=== PATIENT | male | born 1995 | race Caucasian/White ===

== ENCOUNTER → 2018-08-05 11:13 | Outpatient (CLI) | payer MEDICAID, SELFPAY ==
[2018-08-05 11:41] LABS: Basophils # 0.1 K/mm3 (0-0.2); Basophils % 0.7 % (0.1-2.0); Eosinophils # 0.2 K/mm3 (0.0-0.4); Eosinophils % 2.6 % (0.1-12.0); Hematocrit 50.6 % (42.0-52.0); Hemoglobin 16.6 g/dL (14.1-18.0); Lymphocytes # 2.2 K/mm3 (0.7-4.5); Lymphocytes % 27.5 % (10-50); Mean Corpuscular HGB Conc 32.9 g/dL (31.8-35.4); Mean Corpuscular Hemoglobin 31.1 pg (27.0-31.2); Mean Corpuscular Volume 94.5 fl (80-94); Monocytes # 0.6 K/mm3 (0.1-1.0); Monocytes % 7.5 % (1.7-9.3); Neutrophils # 4.9 K/mm3 (1.8-7.8); Neutrophils % 61.8 % (37.0-80.0); Platelet Count 289 K/mm3 (142-424); Red Blood Count 5.35 M/mm3 (4.60-6.20); Red Cell Distribution Width 12.7 % (11.5-17.5); White Blood Count 7.9 K/mm3 (4.8-10.8)
[2018-08-05 14:01] LABS: Alanine Aminotransferase 29 U/L (12-78); Albumin Level 3.5 gm/dL (3.4-5.0); Albumin/Globulin Ratio 1.3 (1.1-1.8); Alkaline Phosphatase 76 U/L (46-116); Anion Gap 14.5 mEq/L (5-15); Aspartate Amino Transferase 21 U/L (15-37); Bilirubin,Total 0.7 mg/dL (0.2-1.0); Blood Urea Nitrogen 14 mg/dL (7-18); Calcium 8.9 mg/dL (8.5-10.1); Carbon Dioxide 26 mmol/L (21.0-32.0); Chloride 104 mmol/L (98-107); Cholesterol 158 mg/dL (140-200); Creatinine,Serum 0.82 mg/dL (0.70-1.30); Estimated Glomerular Filt Rate 117 ml/min (>60); Free T4 (Free Thyroxine) 0.84 ng/dl (0.76-1.46); GFR (African American) 142 ML/MIN (>60); Globulin 2.8 gm/dl (1.3-3.2); Glucose 97 mg/dL (74-106); HDL Cholesterol 40 mg/dL (27-67); LDL Cholesterol 96 mg/dL (0-130); Potassium 4.5 mmoL/L (3.5-5.1); Sodium 140 mmol/L (136-145); Thyroid Stimulating Hormone 1.51 uIU/ml (0.358-3.740); Total Protein,Serum 6.3 gm/dL (6.4-8.2); Triglycerides 108 mg/dL (30-200); VLDL Cholesterol 22 mg/dL (0-40)
[2018-08-06 20:49] LABS: Vitamin D 25 Hydroxy 15.9 ng/mL (30.0-100.0)
== END ==
PROVIDERS: Visit Provider Nurse Practitioner Family
DX: I10 Essential (primary) hypertension (principal); E55.9 Vitamin D deficiency, unspecified
CPT/HCPCS: 36415; 80053; 80061; 82652; 84439; 84443; 85025

== ENCOUNTER → 2019-04-17 16:58 | Outpatient (CLI) | payer MEDICAID, SELFPAY ==
--- NOTE | 2019-04-17 17:18 | XR_ITS ---
PROCEDURE: XR KNEE LT 3V CLINICAL INDICATION: pain COMPARISON: No exams were available for comparison FINDINGS: No fracture or dislocation. No lytic or blastic change. There is normal mineralization. The joint spaces are well-preserved. No significant degenerative/arthritic changes. No erosive changes evident. Other findings:Lead gonadal shielding was utilized for the exam. IMPRESSION: No acute findings. Dictated by: Chai Coppola 04/18/2019 09:46 Electronically signed by Chai Coppola in [place] 04/18/2019 09:46
--- NOTE | 2019-04-17 17:18 | XR_ITS ---
PROCEDURE: XR LUMBAR SPINE 2-3V CLINICAL INDICATION: pain COMPARISON: Pain for months FINDINGS: There is no acute fracture dislocation or other focal bony lesion. Disc space heights are preserved. IMPRESSION: No acute findings. Dictated by: Chai Coppola 04/18/2019 09:48 Electronically signed by Chai Coppola in [place] 04/18/2019 09:48
--- NOTE | 2019-04-17 17:18 | XR_ITS ---
PROCEDURE: XR KNEE RT 3V CLINICAL INDICATION: pain COMPARISON: No exams were available for comparison FINDINGS: No fracture or dislocation. No lytic or blastic change. There is normal mineralization. The joint spaces are well-preserved. No significant degenerative/arthritic changes. No erosive changes evident. Other findings:Lead gonadal shielding was utilized for the exam. IMPRESSION: No acute findings. Dictated by: Chai Coppola 04/18/2019 09:45 Electronically signed by Chai Coppola in [place] 04/18/2019 09:45
[2019-04-17 18:09] LABS: C-Reactive Protein 2.2 mg/dL (0.0-0.9)
[2019-04-17 19:20] LABS: Erythrocyte Sedimentation Rate 7 mm/hr (0-15)
[2019-04-17 21:35] LABS: Alanine Aminotransferase 55 U/L (21-72); Albumin Level 3.8 g/dL (3.4-5.0); Albumin/Globulin Ratio 1.1 (1.1-1.8); Alkaline Phosphatase 90 U/L (46-116); Anion Gap 15.2 mEq/L (5-15); Aspartate Amino Transferase 32 U/L (15-37); Bilirubin,Total 0.4 mg/dL (0.2-1.0); Blood Urea Nitrogen 8 mg/dL (7-18); Calcium 9.1 mg/dL (8.5-10.1); Carbon Dioxide 26 mmol/L (21.0-32.0); Chloride 105 mmol/L (98-107); Creatinine,Serum 0.86 mg/dL (0.70-1.30); Estimated Glomerular Filt Rate 110 ml/min (>60); GFR (African American) 133 ML/MIN (>60); Globulin 3.6 gm/dl (1.3-3.2); Glucose 88 mg/dL (74-106); Potassium 4.2 mmoL/L (3.5-5.1); Sodium 142 mmol/L (137-145); Thyroid Stimulating Hormone 2.01 uIU/ml (0.358-3.740); Total Protein,Serum 7.4 g/dL (6.4-8.2)
[2019-04-19 12:31] LABS: Anti-Centromere B Antibodies <0.2 AI (0.0-0.9); Anti-Jo-1 <0.2 AI (0.0-0.9); Anti-Smith Antibody <0.2 AI (0.0-0.9); Antichromatin Antibodies <0.2 AI (0.0-0.9); Antiscleroderma-70 Antibodies <0.2 AI (0.0-0.9); RNP Antibodies 0.7 AI (0.0-0.9); Sjogren's Anti-SS-A <0.2 AI (0.0-0.9); Sjogren's Anti-SS-B <0.2 AI (0.0-0.9)
[2019-04-20 08:28] LABS: PTT-LA 40.1 sec (0.0-51.9); dRVVT 58.3 sec (0.0-47.0); dRVVT Mix 44.1 sec (0.0-47.0)
[2019-04-21 09:35] LABS: Anti-Cyclic Citrullinated Pept 9 units (0-19); Anti-DNA (DS) Ab Qn 3 IU/mL (0-9); RA Latex Turbid. <10.0 IU/mL (0.0-13.9)
[2019-04-21 10:33] LABS: Lupus Reflex Interpretation Comment: (.)
== END ==
PROVIDERS: Nurse Practitioner Psychiatric/Mental Health; Visit Provider Nurse Practitioner Family
DX: Z00.00 Encounter for general adult medical examination without abnormal findings (principal); M25.562 Pain in left knee; M54.9 Dorsalgia, unspecified; R52 Pain, unspecified
CPT/HCPCS: 36415; 72100; 73562; 80053; 80165; 84443; 85613; 85651; 86140; 86200; 86225; 86235; 86431

== ENCOUNTER → 2019-12-07 17:38 | Outpatient (CLI) | payer MEDICAID, SELFPAY ==
[2019-12-07 18:36] LABS: Hemoglobin A1C 5.3 % (4.0-6.0)
[2019-12-09 10:25] LABS: Hep A Ab, IgM Negative (Negative); Hepatitis B Core Antibody IgM Negative (Negative); Hepatitis B Surface Antigen Negative (Negative)
[2019-12-09 13:18] LABS: HIV Screen 4th Generation wRfx Non Reactive (Non Reactive); Hepatitis C Antibody <0.1 s/co ratio (0.0-0.9)
[2019-12-12 12:22] LABS: Neisseria gonorrhoeae, NAA Negative (Negative)
== END ==
PROVIDERS: Visit Provider Nurse Practitioner Family
DX: R20.0 Anesthesia of skin (principal); M54.5 Low back pain; Z20.2 Contact with and (suspected) exposure to infections with a predominantly sexual mode of transmission; Z11.4 Encounter for screening for human immunodeficiency virus [HIV]; Z79.899 Other long term (current) drug therapy
CPT/HCPCS: 80074; 83036; 86703; 87491; 87591; G0432